=== PATIENT | female | born 1965 | race Caucasian/White ===

== ENCOUNTER → 2016-09-07 | Outpatient (CLI) | payer BC ==
[2016-09-07 11:58] LABS: Basophils % (A) 0 %; CH 31.7; CHCM 32.6; Eosinophils # (A) 0.1 k/uL (0-0.7); Eosinophils % (A) 1 %; HCT 44.5 % (34.0-46.0); HDW 2.37; HGB 14.2 gm/dL (11.4-16.0); Luc # (Auto) 0.19; Luc % (Auto) 2; Lymphocytes # (A) 3.7 k/uL (1.0-4.8); Lymphocytes % (A) 37 %; MCH 31.2 pg (25.0-35.0); MCHC 31.9 g/dL (31.0-37.0); MCV 97.9 fL (80.0-100.0); Mean Platelet Volume 6.5; Monocytes # (A) 0.4 k/uL (0-1.0); Monocytes % (A) 4 %; Neutrophils # (A) 5.6 k/uL (1.3-7.7); Neutrophils % (A) 56 %; RBC 4.54 m/uL (3.80-5.40); RDW 13.4 % (11.5-15.5); WBC 9.9 k/uL (3.8-10.6)
[2016-09-07 13:25] LABS: ALT 52 U/L (9-52); AST 25 U/L (14-36); Alkaline Phosphatase 67 U/L (38-126); Anion Gap 11 mmol/L; Blood Urea Nitrogen 13 mg/dL (7-17); Calcium 9.4 mg/dL (8.4-10.2); Carbon Dioxide 28 mmol/L (22-30); Chloride 104 mmol/L (98-107); Cholesterol 178 mg/dL (<200); Creatine Kinase 54 U/L (30-135); Glucose 95 mg/dL (74-99); HDL Cholesterol 68 mg/dL (40-60); Non-African American GFR(MDRD) >60 (>60 ml/min/1.73 sqM); Potassium 3.8 mmol/L (3.5-5.1); Sodium 143 mmol/L (137-145); Total Bilirubin 0.7 mg/dL (0.2-1.3); Total Protein 6.7 g/dL (6.3-8.2); Triglycerides 203 mg/dL (<150)
[2016-09-07 14:24] LABS: Vitamin B12 >1000 pg/mL (239-931)
== END | disposition home or self-care (01) ==
LOC: LABWHC1 11:02
PROVIDERS: ATTEND Family Medicine
DX: E11.9 Type 2 diabetes mellitus without complications (principal); E78.2 Mixed hyperlipidemia; I10 Essential (primary) hypertension; R53.82 Chronic fatigue, unspecified
CPT/HCPCS: 36415; 80053; 80061; 82550; 82607; 83036; 84439; 84443; 85025

== ENCOUNTER → 2017-03-06 | Outpatient (CLI) | payer BC ==
[2017-03-06 12:15] LABS: Basophils # (A) 0.1 k/uL (0-0.2); Basophils % (A) 1 %; CH 31.6; CHCM 32.9; Eosinophils # (A) 0.1 k/uL (0-0.7); Eosinophils % (A) 2 %; HDW 2.32; HGB 14.3 gm/dL (11.4-16.0); Luc # (Auto) 0.16; Luc % (Auto) 2; Lymphocytes # (A) 3.9 k/uL (1.0-4.8); Lymphocytes % (A) 41 %; MCH 32.1 pg (25.0-35.0); MCHC 33.2 g/dL (31.0-37.0); MCV 96.5 fL (80.0-100.0); Mean Platelet Volume 6.6; Monocytes # (A) 0.4 k/uL (0-1.0); Monocytes % (A) 4 %; Neutrophils % (A) 52 %; RBC 4.45 m/uL (3.80-5.40); RDW 13.5 % (11.5-15.5); WBC 9.7 k/uL (3.8-10.6); WBC (Perox) 9.77
[2017-03-06 12:54] LABS: ALT 38 U/L (9-52); AST 18 U/L (14-36); Alkaline Phosphatase 67 U/L (38-126); Anion Gap 11 mmol/L; Bilirubin, Delta 0.2 mg/dL (0.0-0.2); Blood Urea Nitrogen 18 mg/dL (7-17); C Reactive Protein 6.9 mg/L (<10.0); Calcium 9.2 mg/dL (8.4-10.2); Carbon Dioxide 26 mmol/L (22-30); Chloride 105 mmol/L (98-107); Cholesterol 216 mg/dL (<200); Creatine Kinase 52 U/L (30-135); Glucose 90 mg/dL (74-99); HDL Cholesterol 63 mg/dL (40-60); Non-African American GFR(MDRD) >60 (>60 ml/min/1.73 sqM); Potassium 4.2 mmol/L (3.5-5.1); Sodium 142 mmol/L (137-145); Total Bilirubin 0.6 mg/dL (0.2-1.3); Total Protein 6.6 g/dL (6.3-8.2)
[2017-03-06 13:19] LABS: Vitamin B12 >1000 pg/mL (239-931)
[2017-03-06 14:12] LABS: Hemoglobin A1C 6.2 % (4.2-6.1)
[2017-03-06 15:35] LABS: Erythrocyte Sedimentation Rate 8 mm/hr (0-20)
[2017-03-06 19:34] LABS: ANA w/Reflex to Titer NEGATIVE (NEGATIVE); RNP AB Interpretation NEGATIVE (NEGATIVE)
[2017-03-06 20:18] LABS: Urine Creatinine 130.1 mg/dL
[2017-03-09 11:22] LABS: Lyme IgG/IgM 0.1 Index; Lyme IgG/IgM Interp NEGATIVE (NEGATIVE)
== END | disposition home or self-care (01) ==
LOC: LABWHC1 11:34
PROVIDERS: ATTEND Dermatology
DX: D48.5 Neoplasm of uncertain behavior of skin (principal); E78.2 Mixed hyperlipidemia; E11.9 Type 2 diabetes mellitus without complications; E03.9 Hypothyroidism, unspecified; D69.0 Allergic purpura; D60.9 Acquired pure red cell aplasia, unspecified; R53.82 Chronic fatigue, unspecified; M85.9 Disorder of bone density and structure, unspecified; R60.9 Edema, unspecified
CPT/HCPCS: 36415; 80053; 80061; 80307; 82043; 82248; 82306; 82550; 82570; 82607; 83036; 84165; 84439; 84443; 85025; 85652; 86038; 86140; 86235; 86618

== ENCOUNTER → 2017-08-09 | Outpatient (CLI) | payer BC ==
[2017-08-09 12:51] LABS: Basophils # (A) 0.1 k/uL (0-0.2); Basophils % (A) 1 %; Eosinophils # (A) 0.1 k/uL (0-0.7); Eosinophils % (A) 1 %; HGB 13.7 gm/dL (11.4-16.0); Lymphocytes % (A) 16 %; MCH 30.7 pg (25.0-35.0); MCHC 31.8 g/dL (31.0-37.0); MCV 96.6 fL (80.0-100.0); Mean Platelet Volume 6.4; Monocytes # (A) 0.3 k/uL (0-1.0); Monocytes % (A) 3 %; Neutrophils % (A) 80 %; Platelet Count 339 k/uL (150-450); RBC 4.45 m/uL (3.80-5.40); RDW 13.1 % (11.5-15.5); WBC 12.6 k/uL (3.8-10.6)
[2017-08-09 12:55] LABS: ALT 42 U/L (9-52); AST 21 U/L (14-36); Albumin 4.2 g/dL (3.5-5.0); Alkaline Phosphatase 61 U/L (38-126); Anion Gap 7 mmol/L; Blood Urea Nitrogen 15 mg/dL (7-17); Calcium 9.6 mg/dL (8.4-10.2); Carbon Dioxide 29 mmol/L (22-30); Chloride 106 mmol/L (98-107); Cholesterol 174 mg/dL (<200); Creatine Kinase 64 U/L (30-135); Glucose 113 mg/dL (74-99); HDL Cholesterol 72 mg/dL (40-60); LDL Cholesterol,Calculated 71 mg/dL (0-99); Potassium 4.7 mmol/L (3.5-5.1); Sodium 142 mmol/L (137-145); Total Bilirubin 0.4 mg/dL (0.2-1.3); Total Protein 6.5 g/dL (6.3-8.2); Triglycerides 154 mg/dL (<150); Uric Acid 4.3 mg/dL (3.7-7.4)
[2017-08-09 13:11] LABS: T4, Free (Free Thyroxine) 0.69 ng/dL (0.78-2.19)
[2017-08-09 21:15] LABS: Alternaria alternata IgE <0.10 kU/L; Maple (Box Elder) IgE <0.10 kU/L
[2017-08-09 21:16] LABS: Birch IgE <0.10 kU/L; Oak IgE <0.10 kU/L
[2017-08-09 21:17] LABS: Cat Epith & Dander IgE <0.10 kU/L; Cockroach IgE <0.10 kU/L; Dermato. farinae IgE <0.10 kU/L; Dog Dander IgE <0.10 kU/L; Elm IgE <0.10 kU/L; Ragweed,Common IgE <0.10 kU/L; Red Top (Bentgrass) IgE <0.10 kU/L
[2017-08-09 23:18] LABS: Hemoglobin A1C 6.2 % (4.0-6.0)
[2017-08-15 03:43] LABS: Aspergillus fumigatus IgG Not detected (Not detected); Aureobasidium pullulans IgG 3.3 mcg/mL (< 13.6); Cladosporium herbarium IgG 7.6 mcg/mL (< 14.7); Phoma ssp. IgG < 2.0 mcg/mL (< 6.6); Saccaharomospora viridis Not detected (Not detected); Saccaharopoly. rectivirgula Not detected (Not detected)
== END | disposition home or self-care (01) ==
LOC: LABWHC1 11:56
PROVIDERS: ATTEND Family Medicine
DX: E11.9 Type 2 diabetes mellitus without complications (principal); I10 Essential (primary) hypertension
CPT/HCPCS: 36415; 80053; 80061; 82306; 82550; 82785; 83036; 84439; 84443; 84550; 85025; 86001; 86003; 86606; 86609

== ENCOUNTER → 2017-09-20 | Outpatient (CLI) | payer BC | END | disposition home or self-care (01) | LOC: LABWHC1 11:31 | PROVIDERS: ATTEND Otolaryngology | DX: J30.89 Other allergic rhinitis (principal) | CPT/HCPCS: 36415 ==

== ENCOUNTER → 2017-10-02 | Outpatient (CLI) | payer BC ==
[2017-10-02 13:22] LABS: Basophils # (A) 0.1 k/uL (0-0.2); Basophils % (A) 0 %; Eosinophils # (A) 0.1 k/uL (0-0.7); Eosinophils % (A) 0 %; HCT 42.2 % (34.0-46.0); HGB 14.2 gm/dL (11.4-16.0); Lymphocytes # (A) 1.6 k/uL (1.0-4.8); Lymphocytes % (A) 11 %; MCH 31.4 pg (25.0-35.0); MCHC 33.7 g/dL (31.0-37.0); Mean Platelet Volume 6.7; Monocytes # (A) 0.3 k/uL (0-1.0); Monocytes % (A) 2 %; Neutrophils # (A) 12.1 k/uL (1.3-7.7); Neutrophils % (A) 86 %; Platelet Count 416 k/uL (150-450); RBC 4.54 m/uL (3.80-5.40); RDW 13.2 % (11.5-15.5); WBC 14.1 k/uL (3.8-10.6)
[2017-10-02 19:22] LABS: Rheumatoid Factor 6 IU/mL (0-15)
[2017-10-02 20:53] LABS: Hepatitis A Antibody IgM Non-Reactive (Non-Reactive); Hepatitis B Core IgM Non-Reactive (Non-Reactive)
== END | disposition home or self-care (01) ==
LOC: LABWHC1 12:27
PROVIDERS: ATTEND Otolaryngology
DX: R53.83 Other fatigue (principal); R21 Rash and other nonspecific skin eruption; L50.9 Urticaria, unspecified
CPT/HCPCS: 36415; 80074; 82784; 85025; 86038; 86235; 86431; 86665

== ENCOUNTER → 2018-02-19 | Outpatient (CLI) | payer BC ==
[2018-02-19 08:58] LABS: Basophils # (A) 0.1 k/uL (0-0.2); Basophils % (A) 1 %; Eosinophils # (A) 0.2 k/uL (0-0.7); Eosinophils % (A) 2 %; HCT 41.3 % (34.0-46.0); HGB 13.1 gm/dL (11.4-16.0); Lymphocytes # (A) 4.1 k/uL (1.0-4.8); Lymphocytes % (A) 47 %; MCH 30.5 pg (25.0-35.0); MCHC 31.7 g/dL (31.0-37.0); MCV 96.3 fL (80.0-100.0); Mean Platelet Volume 6.4; Monocytes # (A) 0.4 k/uL (0-1.0); Monocytes % (A) 5 %; Neutrophils # (A) 3.9 k/uL (1.3-7.7); Neutrophils % (A) 44 %; Platelet Count 332 k/uL (150-450); RBC 4.29 m/uL (3.80-5.40); RDW 14.2 % (11.5-15.5); WBC 8.8 k/uL (3.8-10.6)
[2018-02-19 09:04] LABS: ALT 31 U/L (9-52); AST 20 U/L (14-36); Albumin 3.7 g/dL (3.5-5.0); Alkaline Phosphatase 60 U/L (38-126); Anion Gap 5 mmol/L; Blood Urea Nitrogen 10 mg/dL (7-17); Calcium 9.2 mg/dL (8.4-10.2); Carbon Dioxide 29 mmol/L (22-30); Chloride 107 mmol/L (98-107); Cholesterol 182 mg/dL (<200); Glucose 87 mg/dL (74-99); HDL Cholesterol 62 mg/dL (40-60); LDL Cholesterol,Calculated 87 mg/dL (0-99); Potassium 4.3 mmol/L (3.5-5.1); Sodium 141 mmol/L (137-145); Total Bilirubin 0.3 mg/dL (0.2-1.3); Total Protein 5.8 g/dL (6.3-8.2); Triglycerides 165 mg/dL (<150)
[2018-02-19 09:18] LABS: T4, Free (Free Thyroxine) 0.92 ng/dL (0.78-2.19)
[2018-02-19 16:24] LABS: Immunoglobulin E 28.3 IU/mL (0.00-114.00)
[2018-02-19 17:39] LABS: Hemoglobin A1C 5.8 % (4.0-6.0)
== END | disposition home or self-care (01) ==
LOC: LABWHC1 08:22
PROVIDERS: ATTEND Family Medicine
DX: D69.0 Allergic purpura (principal); F90.2 Attention-deficit hyperactivity disorder, combined type; E11.9 Type 2 diabetes mellitus without complications; E78.2 Mixed hyperlipidemia
CPT/HCPCS: 36415; 80053; 80061; 82607; 82785; 83036; 83088; 83655; 84439; 84443; 85025

== ENCOUNTER → 2018-05-07 | Outpatient (CLI) | payer OTHER ==
--- NOTE | 2018-05-07 10:23 | XR ---
EXAMINATION TYPE: XR chest 2V DATE OF EXAM: 05/07/2018 COMPARISON: NONE HISTORY: Persistent cough after recent pneumonia. COPD. Follow-up exam. TECHNIQUE: Frontal and lateral views of the chest are obtained. FINDINGS: There is no focal air space opacity, pleural effusion, or pneumothorax seen. The cardiac silhouette size is within normal limits. The osseous structures are intact. IMPRESSION: No acute cardiopulmonary process. No persistent opacity to suggest recurrent or residual pneumonia.
== END ==
LOC: RADXRMAIN 09:25
PROVIDERS: ATTEND Family Medicine
DX: J44.1 Chronic obstructive pulmonary disease with (acute) exacerbation (principal); J18.9 Pneumonia, unspecified organism; J44.0 Chronic obstructive pulmonary disease with (acute) lower respiratory infection
CPT/HCPCS: 71046

== ENCOUNTER → 2018-07-18 | Outpatient (CLI) | payer OTHER ==
[2018-07-18 11:11] LABS: Basophils # (A) 0.1 k/uL (0-0.2); Basophils % (A) 1 %; Eosinophils # (A) 0.2 k/uL (0-0.7); Eosinophils % (A) 2 %; HCT 42.7 % (34.0-46.0); Lymphocytes # (A) 4.5 k/uL (1.0-4.8); Lymphocytes % (A) 42 %; MCH 29.2 pg (25.0-35.0); MCHC 30.4 g/dL (31.0-37.0); MCV 96.1 fL (80.0-100.0); Mean Platelet Volume 6.4; Monocytes # (A) 0.4 k/uL (0-1.0); Monocytes % (A) 4 %; Neutrophils # (A) 5.3 k/uL (1.3-7.7); Neutrophils % (A) 49 %; Platelet Count 377 k/uL (150-450); RBC 4.45 m/uL (3.80-5.40); RDW 14.1 % (11.5-15.5); WBC 10.7 k/uL (3.8-10.6)
[2018-07-18 15:43] LABS: Albumin 4.4 g/dL (3.80-4.90); Albumin/Globulin Ratio 2.59 (1.20-2.10); Anion Gap 8.4 mmol/L (4.00-12.00); Calcium 9.6 mg/dL (8.7-10.3); Carbon Dioxide 27.6 mmol/L (21.6-31.8); Globulin 1.7 g/dL (1.6-3.3); Potassium 4.5 mmol/L (3.5-5.5); Total Bilirubin 0.4 mg/dL (0.2-1.2); Total Protein 6.1 g/dL (6.2-8.2); Uric Acid 3.9 mg/dL (2.9-7.7)
[2018-07-18 15:51] LABS: T4, Free (Free Thyroxine) 1.3 ng/dL (0.80-1.80)
[2018-07-18 16:47] LABS: Hemoglobin A1C 6.3 % (4.0-6.0)
== END ==
LOC: LABWHC1 10:19
PROVIDERS: ATTEND Family Medicine
DX: E11.9 Type 2 diabetes mellitus without complications (principal); M79.2 Neuralgia and neuritis, unspecified; B00.1 Herpesviral vesicular dermatitis; Z79.52 Long term (current) use of systemic steroids
CPT/HCPCS: 36415; 80053; 80061; 82550; 82607; 83036; 84439; 84443; 84550; 85025

== ENCOUNTER → 2018-09-17 | Outpatient (CLI) | payer OTHER ==
--- NOTE | 2018-09-17 12:25 | MR ---
EXAMINATION TYPE: MR lumbar spine wo con DATE OF EXAM: 09/17/2018 COMPARISON: NONE HISTORY: Radiculopathy lumbar per order. Back pain into left hip buttocks and thigh for 6 months per patient. TECHNIQUE: Multiplanar, multisequence imaging of the lumbar spine is performed without IV contrast. FINDINGS: Sagittal images of the lumbar spine show vertebral body heights and alignment to appear sat isfactory. Multilevel disc desiccation is seen. There is moderate disc space narrowing upper lumbar levels. There is mild disc space narrowing L5-S1 level. Posterior disc herniations are seen at L1-L2 and L4-L5 level on sagittal images. The conus medullaris is normal in position and signal ending mid L1 level. The bone marrow signal intensity is within normal limits. Axial images at T12-L1 level show mild broad disc bulge minimally effacing anterior thecal sac and ax ial image 28 corresponding to sagittal image 7, bilateral neural foramina are patent. Axial images at L1-L2 level show mild to moderate broad disc bulge mildly effacing anterior thecal sa c, bilateral neural foramina are patent. Axial images at L2-L3 level are felt within normal limits. Axial images at L3-L4 level show mild left-sided uncovertebral facet degenerative changes otherwise a re felt within normal limits. Axial images at L4-L5 level show mild to moderate facet degenerative changes bilaterally. There is ce ntral disc protrusion mildly effacing anterior thecal sac. Bilateral neural foramina are patent. Axial images at L5-S1 level show mild to moderate facet degenerative changes bilaterally. Spinal nahum l is preserved. Bilateral neural foramina are patent. Paraspinal muscle bulk is preserved. No suspicious incidental retroperitoneal findings are seen. IMPRESSION: Multilevel degenerative changes in the lumbar spine as above. Most prominent disc herniat ions are L1-L2 and L4-L5 level but no large focal disc herniation is seen to account for patient's le ft-sided radiculopathy type symptoms.
== END | disposition home or self-care (01) ==
LOC: RADMRIMAIN 11:25
PROVIDERS: ATTEND Family Medicine
DX: M51.16 Intervertebral disc disorders with radiculopathy, lumbar region (principal); M47.27 Other spondylosis with radiculopathy, lumbosacral region; M47.26 Other spondylosis with radiculopathy, lumbar region
CPT/HCPCS: 72148

== ENCOUNTER → 2019-03-12 | Outpatient (CLI) | payer OTHER ==
[2019-03-12 08:58] LABS: Basophils # (A) 0.1 k/uL (0-0.2); Basophils % (A) 1 %; Eosinophils # (A) 0.3 k/uL (0-0.7); Eosinophils % (A) 2 %; HCT 42.3 % (34.0-46.0); HGB 13.8 gm/dL (11.4-16.0); Lymphocytes # (A) 4.9 k/uL (1.0-4.8); Lymphocytes % (A) 43 %; MCH 30.2 pg (25.0-35.0); MCHC 32.6 g/dL (31.0-37.0); MCV 92.8 fL (80.0-100.0); Mean Platelet Volume 6.4; Monocytes # (A) 0.5 k/uL (0-1.0); Monocytes % (A) 4 %; Neutrophils # (A) 5.6 k/uL (1.3-7.7); Neutrophils % (A) 49 %; Platelet Count 395 k/uL (150-450); RBC 4.56 m/uL (3.80-5.40); RDW 13.8 % (11.5-15.5); WBC 11.6 k/uL (3.8-10.6)
[2019-03-12 09:32] LABS: ALT 30 U/L (9-52); AST 20 U/L (14-36); African American GFR (CKD) 85 (>60 ml/min/1.73 sqM); Albumin 4.5 g/dL (3.5-5.0); Alkaline Phosphatase 69 U/L (38-126); Anion Gap 9 mmol/L; Blood Urea Nitrogen 14 mg/dL (7-17); C Reactive Protein <5.0 mg/L (<10.0); Calcium 9.9 mg/dL (8.4-10.2); Carbon Dioxide 28 mmol/L (22-30); Chloride 104 mmol/L (98-107); Cholesterol 194 mg/dL (<200); Creatine Kinase 51 U/L (30-135); Glucose 93 mg/dL (74-99); HDL Cholesterol 74 mg/dL (40-60); LDL Cholesterol,Calculated 76 mg/dL (0-99); Non-African American GFR(CKD) 74 (>60 ml/min/1.73 sqM); Potassium 3.9 mmol/L (3.5-5.1); Sodium 141 mmol/L (137-145); Total Bilirubin 0.4 mg/dL (0.2-1.3); Total Protein 7.1 g/dL (6.3-8.2); Triglycerides 219 mg/dL (<150); Uric Acid 5.5 mg/dL (3.7-7.4)
[2019-03-12 09:53] LABS: Erythrocyte Sedimentation Rate 13 mm/hr (0-20)
--- NOTE | 2019-03-12 11:12 | CT ---
EXAMINATION TYPE: CT abdomen w con DATE OF EXAM: 03/12/2019 COMPARISON: None HISTORY: Mixed Irritable bowel syndrome CT DLP: 1103.9 mGycm CONTRAST: CT scan of the abdomen is performed with Oral Contrast and with IV Contrast, patient injected with 1 00 mL of Isovue 300. FINDINGS: LUNG BASES-: No visible nodule. No infiltrate. LIVER/GB: No calcified gallstones. There is mild hepatic steatosis. No space occupying hepatic les ion. Biliary tree is of normal caliber. PANCREAS: No inflammation. No distinct mass. SPLEEN: No splenic enlargement. No lesion seen. ADRENALS: No nodule. No thickening. KIDNEYS/BLADDER: No hydronephrosis. No nephrolithiasis. No distinct renal mass. Urinary bladder g rossly unremarkable. BOWEL: Normal appendix. Normal bowel caliber. No inflammation. LYMPH NODES: No greater than 1cm abdominal or pelvic lymph nodes are appreciated. AORTA: No significant abnormality. OSSEOUS STRUCTURES: No significant abnormality is seen. OTHER: No significant additional abnormality is seen. IMPRESSION: 1. Hepatic steatosis. Otherwise unremarkable study.
[2019-03-12 18:00] LABS: Gliadin AB IgA, Deaminated NEGATIVE (NEGATIVE); Gliadin AB IgA, Unit 1.6 U/mL; Gliadin AB IgG, Deaminated NEGATIVE (NEGATIVE)
== END | disposition home or self-care (01) ==
LOC: RADCTMAIN 08:19
PROVIDERS: ATTEND Family Medicine
DX: K76.0 Fatty (change of) liver, not elsewhere classified (principal); G89.4 Chronic pain syndrome; K58.2 Mixed irritable bowel syndrome; E78.2 Mixed hyperlipidemia; E11.9 Type 2 diabetes mellitus without complications; F90.2 Attention-deficit hyperactivity disorder, combined type; Z79.52 Long term (current) use of systemic steroids
CPT/HCPCS: 80061; 80053; 85652; 82607; 82550; 83690; 84443; 84550; 85025; 86140; 83516 ×4; 83036; 74160; Q9967

== ENCOUNTER 2019-03-19 06:57 | Day surgery (SDC) | payer OTHER ==
[2019-03-18 08:30] VITALS: BMI 31.7
[~2019-03-19 06:57] MED LIST: LACTATED RINGERS 1,000 ML IV SCH; LIDOCAINE 1% 20 ML VIAL (10MG/ML) FOR IV START INTRADERMA PRN
[2019-03-19 07:15] VITALS: TEMP 96.1
[2019-03-19 07:17] LABS: Glucose,Whole Blood 104 mg/dL (75-99)
[2019-03-19] MEDS ORDERED: PROPOFOL 10 MG/ML 20 ML VIAL IV ONE (07:30)
[2019-03-19] MEDS ORDERED: LIDOCAINE 1% INJ 10MG/ML (20 ML MDV) ONE (07:30)
--- NOTE | 2019-03-19 07:59 | P.PCN ---
Date of Procedure: 03/19/19 Procedure(s) Performed: BRIEF HISTORY: Patient is a 53-year-old pleasant female, scheduled for an elective colonoscopy as a part of evaluation of chronic diarrhea for the last several years duration. She has 5-6 loose watery bowel movements daily. She denies melena or mucus in the stool. PROCEDURE PERFORMED: Colonoscopy with biopsy and snare polypectomy. PREOPERATIVE DIAGNOSIS: Change in bowel habits/chronic diarrhea. IV sedation per Anesthesia. PROCEDURE: After informed consent was obtained, the patient, was brought into the endoscopy unit. IV sedation was administered by Anesthesia under continuous monitoring. Digital rectal examination was normal. Initially the Olympus CF-160 flexible video colonoscope was then inserted in the rectum, gradually advanced into the cecum without any difficulty. Careful examination was performed as the scope was gradually being withdrawn. Ileocecal valve and the appendiceal orifice were visualized and appeared normal. Prep was excellent. Mucosa of the cecum, appeared normal. In the ascending colon there was a 1 cm broad-based polyp removed by snare polypectomy. In the transverse colon there was a 5 mm and 1 cm broad-based polyp removed by snare polypectomy. In the sigmoid colon there was a 7-8 mm polyp that was removed by snare polypectomy. In the distal rectum there was a 3 mm polyp removed by snare polypectomy. Rest of the ascending colon, transverse colon, descending colon, sigmoid colon, and rectum appeared normal. Random biopsies were done from the transverse colon to rule out microscopic/collagenous colitis. Retroflexion was performed in the rectum and no lesions were seen. The patient tolerated the procedure well. IMPRESSION: 1 cm broad-based ascending colon polyp status post polypectomy 5 mm and 1 cm broad-based transverse colon polyps status post polypectomy 7-8 mm sigmoid colon polyps status post polypectomy 3 mm distal rectal polyp status post snare polypectomy RECOMMENDATIONS: Findings of this examination were discussed with the patient as well as a family. She was advised to follow with the biopsy results. If the biopsy shows an adenoma, she can have a repeat colonoscopy in 3 years.
[2019-03-19 08:02] VITALS: RESP 16
[2019-03-19 08:26] VITALS: BP 128/88; PULSE 82
== END 2019-03-19 08:58 | disposition home or self-care (01) ==
LOC: ORWHC2ENDO 06:57
PROVIDERS: ATTEND Internal Medicine Gastroenterology
DX: D12.4 Benign neoplasm of descending colon (principal); D12.5 Benign neoplasm of sigmoid colon; K63.5 Polyp of colon; K63.89 Other specified diseases of intestine; K62.1 Rectal polyp; K58.0 Irritable bowel syndrome with diarrhea; I10 Essential (primary) hypertension; J44.9 Chronic obstructive pulmonary disease, unspecified; E78.5 Hyperlipidemia, unspecified; E07.9 Disorder of thyroid, unspecified; F39 Unspecified mood [affective] disorder; Z87.891 Personal history of nicotine dependence; Z79.52 Long term (current) use of systemic steroids; Z79.890 Hormone replacement therapy; Z79.899 Other long term (current) drug therapy
CPT/HCPCS: 88305; 45380; 45385; J2001; J2704

== ENCOUNTER → 2019-04-08 | Outpatient (CLI) | payer OTHER ==
--- NOTE | 2019-04-09 09:23 | US ---
EXAMINATION TYPE: US transvaginal DATE OF EXAM: 04/08/2019 COMPARISON: NONE CLINICAL HISTORY: R10.2 pelvic pain. Pt states bilateral pelvic pain, more on right side, hysterectom y in 1999 TECHNIQUE: Transvaginal (TV). Transvaginal sonographic images of the pelvis were acquired. Date of LMP: 1999 1. Uterus: Surgically absent 2. Endometrium: Surgically absent 3. Right Ovary: Obscured by overlying bowel gas 4. Left Ovary: Obscured by overlying bowel gas 5. Bilateral Adnexa: wnl 6. Posterior cul-de-sac: wnl Unable to visualize bilateral ovaries due to overlying bowel gas, no abnormality visualized within pelvis IMPRESSION: 1. Visualized pelvic ultrasound is unremarkable. There is limitation due to bowel gas.
== END | disposition home or self-care (01) ==
LOC: RADUSWWP 16:01
PROVIDERS: ATTEND Family Medicine
DX: R10.2 Pelvic and perineal pain (principal)
CPT/HCPCS: 76830

== ENCOUNTER 2019-05-28 04:24 | Emergency (ER) | payer OTHER ==
[2019-05-28 04:34] VITALS: RESP 18; TEMP 97.9
[2019-05-28] MEDS ORDERED: METOCLOPRAMIDE 5 MG/ML 2 ML VIAL IVP STA (05:10)
[2019-05-28] MEDS ORDERED: SODIUM CHLORIDE 0.9% 500 ML 500 ML IV STA (05:10)
[2019-05-28] MEDS ORDERED: KETOROLAC 30 MG/ML 1 ML VIAL IVP STA (05:10)
[2019-05-28] MEDS ORDERED: diphenhydrAMINE 50 MG/ML 1 ML VIAL IVP STA (05:10)
--- NOTE | 2019-05-28 06:03 | ED ---
Headache HPI - General Chief Complaint: Headache Stated Complaint: Headache,vomiting,diarrhea Time Seen by Provider: 05/28/19 04:59 Mode of arrival: wheelchair - History of Present Illness MD Complaint: "migraine" -: hour(s) Onset Description: gradual Location: right, temporal, occipital Severity: severe Quality: aching, throbbing Consistency: constant Improves With: nothing Worsens With: light, noise Associated Symptoms: nausea, vomiting - Related Data Home Medications Medication Instructions Recorded Confirmed Atorvastatin [Lipitor] 80 mg PO HS 03/18/19 03/19/19 Cholecalciferol [Vitamin D3 (25 5,000 unit PO DAILY 03/18/19 03/19/19 Mcg = 1000 Iu)] Citalopram Hydrobromide 40 mg PO DAILY 03/18/19 03/19/19 [Citalopram HBr] Cyanocobalamin (Vitamin B-12) 5,000 mcg PO DAILY 03/18/19 03/19/19 [Vitamin B-12] DULoxetine HCL [Cymbalta] 30 mg PO BID 03/18/19 03/19/19 Ipratropium/Albuterol Sulfate 1 puff INHALATION QID 03/18/19 03/19/19 [Combivent Respimat Inhaler] Levothyroxine Sodium [Synthroid] 50 mcg PO DAILY 03/18/19 03/19/19 Methylphenidate HCl [Ritalin LA] 30 mg PO DAILY 03/18/19 03/19/19 Montelukast [Singulair] 10 mg PO HS 03/18/19 03/19/19 Omeprazole [PriLOSEC] 20 mg PO AC-BRKFST 03/18/19 03/19/19 Propranolol HCl 60 mg PO DAILY 03/18/19 03/19/19 hydrOXYzine HCL 25 mg PO HS 03/18/19 03/19/19 predniSONE 10 mg PO DAILY 03/18/19 03/19/19 Allergies Allergy/AdvReac Type Severity Reaction Status Date / Time No Known Allergies Allergy Verified 05/28/19 04:33 Review of Systems ROS Statement: Those systems with pertinent positive or pertinent negative responses have been documented in the HPI. ROS Other: All systems not noted in ROS Statement are negative. Constitutional: Denies: fever, chills Eyes: Denies: eye pain, vision change ENT: Denies: ear pain, hearing loss, congestion Respiratory: Denies: cough, dyspnea Cardiovascular: Denies: chest pain, syncope Gastrointestinal: Reports: nausea, vomiting. Denies: abdominal pain Skin: Denies: rash Neurological: Reports: headache. Denies: weakness, numbness, paresthesias, confusion, abnormal gait Hematological/Lymphatic: Denies: easy bleeding Past Medical History Past Medical History: Asthma, COPD, GERD/Reflux, Hyperlipidemia, Hypertension, Skin Disorder, Thyroid Disorder Additional Past Medical History / Comment(s): CHRONIC HIVES History of Any Multi-Drug Resistant Organisms: None Reported Past Surgical History: Hysterectomy Additional Past Surgical History / Comment(s): LT THYROIDECTOMY. COLONOSCOPY Past Anesthesia/Blood Transfusion Reactions: No Reported Reaction Past Psychological History: ADD/ADHD, Depression Smoking Status: Current some day smoker Past Alcohol Use History: Occasional Past Drug Use History: None Reported - Past Family History Mother Family Medical History: No Reported History General Exam General appearance: alert, in no apparent distress Head exam: Present: atraumatic, normocephalic Eye exam: Present: normal appearance, PERRL, EOMI. Absent: scleral icterus, conjunctival injection ENT exam: Present: normal oropharynx Neck exam: Present: normal inspection, full ROM. Absent: meningismus Respiratory exam: Present: normal lung sounds bilaterally. Absent: respiratory distress, wheezes, rales, rhonchi, stridor Cardiovascular Exam: Present: regular rate, normal rhythm, normal heart sounds. Absent: systolic murmur, diastolic murmur, rubs, gallop GI/Abdominal exam: Present: soft. Absent: distended, tenderness, guarding, rebo und Extremities exam: Present: normal inspection, normal capillary refill. Absent: pedal edema, calf tenderness Back exam: Present: normal inspection. Absent: CVA tenderness (R), CVA tenderness (L) Neurological exam: Present: alert, oriented X3, CN II-XII intact. Absent: motor sensory deficit Skin exam: Present: warm, dry, intact, normal color. Absent: rash Course Vital Signs 05/28/19 05/28/19 04:30 06:12 Temperature 97.9 F Pulse Rate 78 69 Respiratory 18 18 Rate Blood Pressure 160/111 132/75 O2 Sat by Pulse 99 96 Oximetry Medical Decision Making - Medical Decision Making Patient had resolution of her symptoms with the medication and requested to go home. This headache is typical of her previous headaches. Not worst headache of life. Discussed follow-up with neurology to see if there may be a prophylactic medication for her migraines. Discussed return parameters. Disposition Clinical Impression: Headache Disposition: HOME SELF-CARE Condition: Good Instructions (If sedation given, give patient instructions): Acute Headache (ED) Is patient prescribed a controlled substance at d/c from ED?: No Referrals: Veronique Segovia MD [Primary Care Provider] - 1-2 days
[2019-05-28 06:15] VITALS: BP 132/75; PULSE 69
== END 2019-05-28 06:15 | disposition home or self-care (01) ==
LOC: EC 04:24
DX: R51 Headache (principal); J44.9 Chronic obstructive pulmonary disease, unspecified; K21.9 Gastro-esophageal reflux disease without esophagitis; E78.5 Hyperlipidemia, unspecified; I10 Essential (primary) hypertension; E07.9 Disorder of thyroid, unspecified; L50.8 Other urticaria; F90.9 Attention-deficit hyperactivity disorder, unspecified type; F32.9 Major depressive disorder, single episode, unspecified; F17.200 Nicotine dependence, unspecified, uncomplicated; Z79.51 Long term (current) use of inhaled steroids; Z79.890 Hormone replacement therapy; Z79.52 Long term (current) use of systemic steroids; Z79.899 Other long term (current) drug therapy; Z90.89 Acquired absence of other organs
CPT/HCPCS: 99283; 96374; 96375 ×2; 96361; J1200; J2765; J1885

== ENCOUNTER → 2019-08-06 | Outpatient (CLI) | payer OTHER ==
[2019-08-06 15:33] LABS: African American GFR (CKD) >90 (>60 ml/min/1.73 sqM); Blood Urea Nitrogen 15 mg/dL (7-17); Non-African American GFR(CKD) 80 (>60 ml/min/1.73 sqM)
--- NOTE | 2019-08-07 05:02 | CT ---
EXAMINATION TYPE: CT angio abdomen pelvis DATE OF EXAM: 08/06/2019 COMPARISON: CT abdomen 03/12/2019 HISTORY: 54-year-old female RLQ abdominal pain TECHNIQUE: Contiguous axial scanning of the abdomen and pelvis following administration of 100 ml Iso jordana-370 IV contrast. Coronal/sagittal MIP reconstructions performed. Additional 3-D reconstructions generated on a dedicated independent workstation. CT DLP: 745.6 mGycm Automated exposure control for dose reduction was used. FINDINGS: Heart normal size without pericardial effusion. Lung bases clear without pleural effusion. Tortuous descending thoracic aorta. At the thoracoabdominal junction, the aorta is borderline ectatic at 2.5 cm. Celiac axis, SMA, single renal arteries, and GERARDO are patent. Very mild atherosclerotic calcifications eccentrically within the proximal right renal artery. Abdominal aorta at the level of the renal arteries measures 2.2 cm. Distal abdominal aorta measures 1.7 cm. The bifurcation appears normal and the common iliac arteries are normal caliber. Tiny hiatal hernia. Arterial phase imaging of the liver, gallbladder, adrenal glands, kidneys, spleen with tiny inferior hilar splenule, and pancreas show no gross abnormality. Assessment for hepatic steatosis limited on t his phase of imaging. No dilated small bowel, free fluid, or free air. No mesenteric or retroperitoneal lymphadenopathy. Normal appendix. Mild stool burden. Mildly redundant sigmoid colon. No pericolonic inflammatory adler e. Bladder nondistended. Uterus surgically absent. Both ovaries are visualized. A few pelvic phlebolith are noted. No abnormal fluid collection in the pelvis or pelvic lymphadenopathy. Bones: Scattered mild degenerative disc disease. Facet arthropathy lower lumbar spine. Trace grade 1 retrolisthesis at L1-L2. IMPRESSION: 1. NO EVIDENCE FOR ABDOMINAL AORTIC ANEURYSM. THE AORTA AT THE THORACOABDOMINAL JUNCTION IS BORDERLIN E ECTATIC AT 2.5 CM. 2. NO SIGNIFICANT ATHEROSCLEROTIC NARROWING WITHIN THE VISCERAL ARTERIES. 3. NORMAL APPENDIX. NO ACUTE INFLAMMATORY PROCESS IDENTIFIED IN THE ABDOMEN OR PELVIS.
== END | disposition home or self-care (01) ==
LOC: RADCTMAIN 14:51
PROVIDERS: ATTEND Family Medicine
DX: I77.811 Abdominal aortic ectasia (principal)
CPT/HCPCS: 82565; 84520; 36415; 74174; Q9967

== ENCOUNTER → 2019-08-12 | Outpatient (CLI) | payer OTHER ==
[2019-08-12 12:29] LABS: Basophils # (A) 0.1 k/uL (0-0.2); Basophils % (A) 1 %; Eosinophils # (A) 0.2 k/uL (0-0.7); Eosinophils % (A) 2 %; HCT 41.9 % (34.0-46.0); HGB 13.8 gm/dL (11.4-16.0); Lymphocytes # (A) 1.4 k/uL (1.0-4.8); Lymphocytes % (A) 14 %; MCH 31.2 pg (25.0-35.0); MCV 94.4 fL (80.0-100.0); Monocytes # (A) 0.3 k/uL (0-1.0); Monocytes % (A) 3 %; Neutrophils # (A) 8.1 k/uL (1.3-7.7); Neutrophils % (A) 79 %; Platelet Count 344 k/uL (150-450); RBC 4.43 m/uL (3.80-5.40); WBC 10.2 k/uL (3.8-10.6)
[2019-08-12 13:50] LABS: Erythrocyte Sedimentation Rate 13 mm/hr (0-20)
[2019-08-12 19:48] LABS: Protein, Total 6.2 g/dL (6.2-8.2)
[2019-08-12 20:10] LABS: ALT 39 U/L (8-44); AST 23 U/L (13-35); African American GFR (CKD) 74.5 (60.0-200.0); Albumin/Globulin Ratio 2.88 (1.60-3.17); Alkaline Phosphatase 73 U/L (41-126); C Reactive Protein <0.4 mg/dL (0.0-0.8); Calcium 9.1 mg/dL (8.7-10.3); Carbon Dioxide 28.1 mmol/L (21.6-31.8); Chloride 105 mmol/L (96-109); Chol/HDL Ratio 3.02; Cholesterol 193 mg/dL (0-200); Creatine Kinase 47 U/L (26-186); Globulin 1.6 g/dL (1.6-3.3); Glucose 128 mg/dL (70-110); LDH 225 U/L (120-246); LDL Cholesterol,Calculated 91.4 mg/dL (0.0-131.0); Magnesium 2.1 mg/dL (1.5-2.4); Non-African American GFR(CKD) 64.3 (60.0-200.0); Potassium 4.1 mmol/L (3.5-5.5); Sodium 141 mmol/L (135-145); Total Bilirubin 0.5 mg/dL (0.3-1.2); Total Protein 6.2 g/dL (6.2-8.2); Uric Acid 4.2 mg/dL (2.9-7.7)
[2019-08-12 21:27] LABS: Hemoglobin A1C 6.5 % (4.0-6.0)
[2019-08-13 13:46] LABS: Albumin 3.78 g/dL (3.80-4.90); Gamma Globulin 0.45 g/dL (0.70-1.50)
== END | disposition home or self-care (01) ==
LOC: LABWHC1 12:01
PROVIDERS: ATTEND Family Medicine
DX: E11.9 Type 2 diabetes mellitus without complications (principal); E78.2 Mixed hyperlipidemia; E03.9 Hypothyroidism, unspecified; K58.2 Mixed irritable bowel syndrome; M25.552 Pain in left hip; R10.30 Lower abdominal pain, unspecified
CPT/HCPCS: 36415; 80053; 80061; 82550; 82595; 83036; 83615; 83690; 83735; 84165; 84439; 84443; 84550; 85025; 85652; 86140

== ENCOUNTER → 2019-09-16 | Outpatient (CLI) | payer OTHER ==
--- NOTE | 2019-09-16 12:10 | XR ---
EXAMINATION TYPE: XR finger LT, 3 views coned down left thumb DATE OF EXAM: 09/16/2019 Comparison: None Clinical History: 54-year-old female M79.642 PAIN LEFT HAND Findings: There is a 4 mm loose body on the dorsal aspect of the first CMC joint. Moderate to severe joint spac e narrowing is present with marginal spurring. Some dorsal joint subluxation is also noted. No acute fracture or dislocation. Mild degenerative joint space narrowing triscaphe joint. 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 Mild degenerative change at the triscaphe joint.
== END | disposition home or self-care (01) ==
LOC: RADXRWHC 11:02
PROVIDERS: ATTEND Family Medicine
DX: M19.042 Primary osteoarthritis, left hand (principal); M19.032 Primary osteoarthritis, left wrist

== ENCOUNTER → 2020-01-16 | Outpatient (CLI) | payer OTHER ==
[2020-01-16 12:43] LABS: Basophils # (A) 0.1 k/uL (0-0.2); Basophils % (A) 1 %; Eosinophils # (A) 0.2 k/uL (0-0.7); Eosinophils % (A) 2 %; HCT 42.7 % (34.0-46.0); HGB 13.3 gm/dL (11.4-16.0); Lymphocytes # (A) 3.1 k/uL (1.0-4.8); Lymphocytes % (A) 29 %; MCHC 31.2 g/dL (31.0-37.0); MCV 96.2 fL (80.0-100.0); Mean Platelet Volume 7.2; Monocytes # (A) 0.5 k/uL (0-1.0); Monocytes % (A) 4 %; Neutrophils # (A) 6.8 k/uL (1.3-7.7); Neutrophils % (A) 64 %; Platelet Count 361 k/uL (150-450); RBC 4.44 m/uL (3.80-5.40); RDW 13.4 % (11.5-15.5); WBC 10.7 k/uL (3.8-10.6)
[2020-01-16 19:15] LABS: African American GFR (CKD) 84.6 (60.0-200.0); Albumin 4.4 g/dL (3.80-4.90); Albumin/Globulin Ratio 2.44 (1.60-3.17); Anion Gap 7.8 mmol/L (4.00-12.00); BUN/Creat Ratio 13.33 Ratio (12.00-20.00); Calcium 9.1 mg/dL (8.7-10.3); Carbon Dioxide 29.2 mmol/L (21.6-31.8); Chol/HDL Ratio 3.19; Globulin 1.8 g/dL (1.6-3.3); LDL Cholesterol,Calculated 93.2 mg/dL (0.0-131.0); Potassium 4.3 mmol/L (3.5-5.5); Total Bilirubin 0.5 mg/dL (0.2-1.2); Total Protein 6.2 g/dL (6.2-8.2); VLDL Calculation 44.8 mg/dL (5.00-40.00)
[2020-01-16 19:22] LABS: T4, Free (Free Thyroxine) 1.4 ng/dL (0.80-1.80)
[2020-01-16 20:47] LABS: Urine Creatinine 246.3 mg/dL
[2020-01-16 21:12] LABS: Hemoglobin A1C 6.8 % (4.0-6.0)
== END | disposition home or self-care (01) ==
LOC: LABWHC1 11:37
PROVIDERS: ATTEND Family Medicine
DX: I10 Essential (primary) hypertension (principal); E11.9 Type 2 diabetes mellitus without complications; M79.7 Fibromyalgia; E78.2 Mixed hyperlipidemia; Z79.52 Long term (current) use of systemic steroids
CPT/HCPCS: 36415; 80053; 80061; 82043; 82306; 82550; 82570; 82607; 83036; 84439; 84443; 85025

== ENCOUNTER 2020-01-26 15:57 | Emergency (ER) | payer OTHER ==
[2020-01-26 16:13] VITALS: TEMP 99
[2020-01-26] MEDS ORDERED: ONDANSETRON 4 MG/2 ML VIAL IVP STA (16:43)
[2020-01-26] MEDS ORDERED: KETOROLAC 30 MG/ML 1 ML VIAL IVP STA (16:43)
[2020-01-26] MEDS ORDERED: SODIUM CHLORIDE 0.9% 1,000 ML IV STA (16:43)
--- NOTE | 2020-01-26 16:49 | ED ---
Back Pain HPI - General Chief Complaint: Back Pain/Injury Stated Complaint: rib & back pain Time Seen by Provider: 01/26/20 16:18 Source: patient Limitations: no limitations - History of Present Illness Initial Comments: Patient is a 54-year-old female presenting to emergency Department with chief complaint of back and abdominal pain. Patient states she saw her primary care physician today who advised to come to emergency department to rule out gallstones. Patient states for the last few weeks she developed right upper quadrant abdominal pain, but yesterday around 5 PM she was reeling a hose with her right hand when she felt a sudden onset of right upper flank/right thoracic region tenderness near the serratus muscle patient also reports right upper quadrant pain and tenderness that is sharp in nature. States the pain is not related to by mouth intake. Denies any nausea or vomiting. Denies any night sweats or chills. Patient reports the pain is sharp in nature. Patient reports the pain is exacerbated with ambulation. Patient reports she also has right upper quadrant abdominal pain. States the pain is not postprandial but it is sharp in nature. Patient denies any diarrhea or constipation. - Related Data Home Medications Medication Instructions Recorded Confirmed Atorvastatin [Lipitor] 80 mg PO HS 03/18/19 03/19/19 Cholecalciferol [Vitamin D3 (25 5,000 unit PO DAILY 03/18/19 03/19/19 Mcg = 1000 Iu)] Citalopram Hydrobromide 40 mg PO DAILY 03/18/19 03/19/19 [Citalopram HBr] Cyanocobalamin (Vitamin B-12) 5,000 mcg PO DAILY 03/18/19 03/19/19 [Vitamin B-12] DULoxetine HCL [Cymbalta] 30 mg PO BID 03/18/19 03/19/19 Ipratropium/Albuterol Sulfate 1 puff INHALATION QID 03/18/19 03/19/19 [Combivent Respimat Inhaler] Levothyroxine Sodium [Synthroid] 50 mcg PO DAILY 03/18/19 03/19/19 Methylphenidate HCl [Ritalin LA] 30 mg PO DAILY 03/18/19 03/19/19 Montelukast [Singulair] 10 mg PO HS 03/18/19 03/19/19 Omeprazole [PriLOSEC] 20 mg PO AC-BRKFST 03/18/19 03/19/19 Propranolol HCl 60 mg PO DAILY 03/18/19 03/19/19 hydrOXYzine HCL 25 mg PO HS 03/18/19 03/19/19 predniSONE 10 mg PO DAILY 03/18/19 03/19/19 Previous Rx's Medication Instructions Recorded Cyclobenzaprine [Flexeril] 5 mg PO TID PRN #15 tablet 01/26/20 Allergies Allergy/AdvReac Type Severity Reaction Status Date / Time No Known Allergies Allergy Verified 01/26/20 16:09 Review of Systems ROS Statement: Those systems with pertinent positive or pertinent negative responses have been documented in the HPI. ROS Other: All systems not noted in ROS Statement are negative. Past Medical History Past Medical History: Asthma, COPD, GERD/Reflux, Hyperlipidemia, Hypertension, Skin Disorder, Thyroid Disorder Additional Past Medical History / Comment(s): CHRONIC HIVES History of Any Multi-Drug Resistant Organisms: None Reported Past Surgical History: Hysterectomy Additional Past Surgical History / Comment(s): LT THYROIDECTOMY. COLONOSCOPY Past Anesthesia/Blood Transfusion Reactions: No Reported Reaction Past Psychological History: ADD/ADHD, Depression Smoking Status: Current some day smoker Past Alcohol Use History: Occasional Past Drug Use History: None Reported - Past Family History Mother Family Medical History: No Reported History General Exam Limitations: no limitations General appearance: alert, in no apparent distress Head exam: Present: atraumatic, normocephalic Eye exam: Present: normal appearance, PERRL, EOMI Pupils: Present: normal accommodation ENT exam: Present: normal exam, normal oropharynx, mucous membranes moist, TM's normal bilaterally, normal external ear exam Neck exam: Present: normal inspection, full ROM Respiratory exam: Present: normal lung sounds bilaterally. Absent: respiratory distress, wheezes Cardiovascular Exam: Present: regular rate, normal rhythm, normal heart sounds GI/Abdominal exam: Present: soft, tenderness (Right upper quadrant abdominal pain. Negative Ray sign. Right flank pain.). Absent: distended Extremities exam: Present: normal inspection, full ROM. Absent: tenderness Back exam: Present: normal inspection, full ROM, tenderness (Tenderness along the right serratus anterior muscle). Absent: CVA tenderness (R), CVA tenderness (L), paraspinal tenderness, vertebral tenderness Neurological exam: Present: alert, oriented X3, normal gait Psychiatric exam: Present: normal affect, normal mood Skin exam: Present: warm, dry, intact, normal color Course Vital Signs 01/26/20 01/26/20 01/26/20 16:10 17:11 17:47 Temperature 99.0 F Pulse Rate 144 H 114 H 109 H Respiratory 22 18 18 Rate Blood Pressure 175/119 172/127 142/99 O2 Sat by Pulse 95 97 97 Oximetry 01/26/20 18:49 Temperature 99.0 F Pulse Rate 109 H Respiratory 18 Rate Blood Pressure 142/99 O2 Sat by Pulse 97 Oximetry Medical Decision Making - Medical Decision Making Patient is a 54-year-old female presenting to emergency Department with chief complaint of back pain. She was sent by PCP to rule out gallstones. On exam patient appears to have focal tenderness along the right serratus anterior muscles that appears to be exacerbated with a pulling motion of the right upper extremity. She also appears to have right upper quadrant abdominal tenderness with a negative Ray sign. Ultrasound right upper quadrant reveals no signs of gallbladder-related issues. Patient has mild leukocytosis of 13.1. CMP is unremarkable. UA is clean. I suspect this is most discussed the pain related to the right serratus anterior muscle. Patient was given fluids and analgesia. On reevaluation patient still reports some pain. Patient was given a Lidoderm patch. On reevaluation patient reports improving symptoms. Patient will be discharged with Tylenol 3 starter pack. Her blood pressure did improve with just suspect was only high secondary to pain. No focal neural deficits. No ch est pain or shortness of breath. Return parameters were thoroughly discussed the patient was understanding and agreeable. Case discussed with physician. - Lab Data Result diagrams: 01/26/20 16:56 01/26/20 16:56 Lab Results 01/26/20 01/26/20 01/26/20 Range/Units 16:56 16:56 Unknown WBC 13.1 H (3.8-10.6) k/uL RBC 4.62 (3.80-5.40) m/uL Hgb 13.9 (11.4-16.0) gm/dL Hct 43.7 (34.0-46.0) % MCV 94.6 (80.0-100.0) fL MCH 30.1 (25.0-35.0) pg MCHC 31.9 (31.0-37.0) g/dL RDW 13.7 (11.5-15.5) % Plt Count 395 (150-450) k/uL Neutrophils % 71 % Lymphocytes % 20 % Monocytes % 5 % Eosinophils % 2 % Basophils % 1 % Neutrophils # 9.3 H (1.3-7.7) k/uL Lymphocytes # 2.7 (1.0-4.8) k/uL Monocytes # 0.6 (0-1.0) k/uL Eosinophils # 0.3 (0-0.7) k/uL Basophils # 0.1 (0-0.2) k/uL Sodium 138 (137-145) mmol/L Potassium 4.1 (3.5-5.1) mmol/L Chloride 106 (98-107) mmol/L Carbon Dioxide 21 L (22-30) mmol/L Anion Gap 11 mmol/L BUN 8 (7-17) mg/dL Creatinine 0.70 (0.52-1.04) mg/dL Est GFR (CKD-EPI)AfAm >90 (>60 ml/min/1.73 sqM) Est GFR (CKD-EPI)NonAf >90 (>60 ml/min/1.73 sqM) Glucose 119 H (74-99) mg/dL Calcium 9.8 (8.4-10.2) mg/dL Total Bilirubin 0.6 (0.2-1.3) mg/dL AST 29 (14-36) U/L ALT 32 (4-34) U/L Alkaline Phosphatase 89 (38-126) U/L Total Protein 7.2 (6.3-8.2) g/dL Albumin 4.5 (3.5-5.0) g/dL Lipase 130 (23-300) U/L Urine Color Light Yellow Urine Appearance Clear (Clear) Urine pH 5.5 (5.0-8.0) Ur Specific [place] 1.007 (1.001-1.035) Urine Protein Negative (Negative) Urine Glucose (UA) Negative (Negative) Urine Ketones Negative (Negative) Urine Blood Negative (Negative) Urine Nitrite Negative (Negative) Urine Bilirubin Negative (Negative) Urine Urobilinogen <2.0 (<2.0) mg/dL Ur Leukocyte Esterase Negative (Negative) Disposition Clinical Impression: Back pain Disposition: HOME SELF-CARE Condition: Stable Instructions (If sedation given, give patient instructions): Acute Low Back Pain (ED) Additional Instructions: Follow-up with her primary care. Take medication as directed. Return to emergency department if symptoms worsen. Prescriptions: Cyclobenzaprine [Flexeril] 5 mg PO TID PRN #15 tablet PRN Reason: Muscle Spasm Is patient prescribed a controlled substance at d/c from ED?: No Referrals: Veronique Segovia MD [Primary Care Provider] - 1-2 days Time of Disposition: 18:28
[2020-01-26 17:01] LABS: Basophils # (A) 0.1 k/uL (0-0.2); Basophils % (A) 1 %; Eosinophils # (A) 0.3 k/uL (0-0.7); Eosinophils % (A) 2 %; HCT 43.7 % (34.0-46.0); HGB 13.9 gm/dL (11.4-16.0); Lymphocytes # (A) 2.7 k/uL (1.0-4.8); Lymphocytes % (A) 20 %; MCH 30.1 pg (25.0-35.0); MCHC 31.9 g/dL (31.0-37.0); MCV 94.6 fL (80.0-100.0); Mean Platelet Volume 7.1; Monocytes # (A) 0.6 k/uL (0-1.0); Monocytes % (A) 5 %; Neutrophils # (A) 9.3 k/uL (1.3-7.7); Neutrophils % (A) 71 %; Platelet Count 395 k/uL (150-450); RBC 4.62 m/uL (3.80-5.40); RDW 13.7 % (11.5-15.5); WBC 13.1 k/uL (3.8-10.6)
[2020-01-26 17:08] LABS: Appearance,Urine Clear (Clear); Bilirubin,Urine Negative (Negative); Blood,Urine Negative (Negative); Color,Urine Light Yellow; Glucose,Urine (UA) Negative (Negative); Ketones,Urine Negative (Negative); Leukocyte Esterase,Urine Negative (Negative); Nitrite,Urine Negative (Negative); PH, Urine 5.5 (5.0-8.0); Protein,Urine Negative (Negative); Specific Gravity,Urine 1.007 (1.001-1.035); Urobilinogen,Urine <2.0 mg/dL (<2.0)
[2020-01-26 17:12] VITALS: RESP 18
[2020-01-26 17:14] LABS: ALT 32 U/L (4-34); AST 29 U/L (14-36); African American GFR (CKD) >90 (>60 ml/min/1.73 sqM); Albumin 4.5 g/dL (3.5-5.0); Alkaline Phosphatase 89 U/L (38-126); Anion Gap 11 mmol/L; Blood Urea Nitrogen 8 mg/dL (7-17); Calcium 9.8 mg/dL (8.4-10.2); Carbon Dioxide 21 mmol/L (22-30); Chloride 106 mmol/L (98-107); Glucose 119 mg/dL (74-99); Non-African American GFR(CKD) >90 (>60 ml/min/1.73 sqM); Potassium 4.1 mmol/L (3.5-5.1); Sodium 138 mmol/L (137-145); Total Bilirubin 0.6 mg/dL (0.2-1.3); Total Protein 7.2 g/dL (6.3-8.2)
[2020-01-26 17:47] VITALS: BP 142/99; PULSE 109
--- NOTE | 2020-01-26 17:52 | US ---
EXAMINATION TYPE: US abdomen limited DATE OF EXAM: 01/26/2020 COMPARISON: CT 2019. CLINICAL HISTORY: ruq abd pain. RUQ abdominal pain x 1 day. Hx kidney stone. EXAM MEASUREMENTS: Liver Length: 15.7 cm Gallbladder Wall: 0.18 cm CBD: 0.30 cm Right Kidney: 11.7 x 4.7 x 5.2 cm *Limited due to overlying bowel gas and patient body habitus. Pancreas: Not well visualized. Liver: Appears to have an increased echogenicity and to be coarse. Limited. Gallbladder: Limited, appears to have minimal internal echoes within. Measures 3.1 cm in width. Evidence for sonographic Ray's sign: No CBD: Appears to be wnl. Right Kidney: No hydronephrosis or masses seen. Cortical thinning. IMPRESSION: 1. No acute abdomen ultrasound changes. There is some limitation due to body habitus and bowel gas.
[2020-01-26] MEDS ORDERED: ACET/COD 300 MG/30 MG STARTER PACK 6 TAB BTL PO STA (18:25)
[2020-01-26] MEDS ORDERED: LIDOCAINE 5% PATCH TOPICAL STA (18:25)
== END 2020-01-26 18:52 | disposition home or self-care (01) ==
LOC: EC 15:57
DX: M54.9 Dorsalgia, unspecified (principal); R10.11 Right upper quadrant pain; D72.829 Elevated white blood cell count, unspecified; E78.5 Hyperlipidemia, unspecified; I10 Essential (primary) hypertension; J44.9 Chronic obstructive pulmonary disease, unspecified; F17.200 Nicotine dependence, unspecified, uncomplicated; K21.9 Gastro-esophageal reflux disease without esophagitis; E07.9 Disorder of thyroid, unspecified; L50.8 Other urticaria; F32.9 Major depressive disorder, single episode, unspecified; F90.9 Attention-deficit hyperactivity disorder, unspecified type; Z79.890 Hormone replacement therapy; Z79.51 Long term (current) use of inhaled steroids; Z79.52 Long term (current) use of systemic steroids; Z79.899 Other long term (current) drug therapy; Z87.442 Personal history of urinary calculi; Z90.89 Acquired absence of other organs
CPT/HCPCS: 36415; 80053; 83690; 85025; 81003; 76705; 99284; 96374; 96361 ×2; J1885

== ENCOUNTER → 2020-02-25 | Outpatient (CLI) | payer OTHER ==
--- NOTE | 2020-02-25 09:21 | BD ---
EXAMINATION TYPE: Axial Bone Density DATE OF EXAM: 02/25/2020 COMPARISON: 06.28.2017 CLINICAL HISTORY: 54 YR OLD FEMALE.....ICD-10 CODE: M81.0 OSTEOPOROSIS Height: 62.4 Weight: 197 FRAX RISK QUESTIONS: Glucocorticoids (More than 3mos): YES (Ex: prednisone, prednisolone, methylprednisolone, dexamethasone, and hydrocortisone). Current Tobacco Use: YES, BUT QUIT MONTHS AGO RISK FACTORS HISTORY OF: RT FOOT FRACTURE AT 42 YRS OLD History of Wrist Fracture: RT WRIST CHILD Family History of Osteoporosis: YES, HER MOTHER NO HIP FX Diet low in dairy products/other sources of calcium: YES, IBS Postmenopausal woman: YES AT AGE 33 PARTIAL HYST, 50'S FOR SYMPTOMS Hyperparathyroidism: NO Adrenal Insufficiency: NO MEDICATIONS: Prednisone or other steroids: YES, BOTH FOR ASTHMA AND FIBROMYALGIA, URTICARIAL VASCULITIS How Long: OVER 20 YRS Thyroid Medications: GENERIC SYNTROID, FOR ABOUT 7 YRS Additional Medications: BP MEDS, CYMBALTA, REFLUX MEDS, STATIN FOR CHOLESTEROL, VIT D AND CALCIUM Additional History: ASTHMA, FIBROMYALGIA, UTICARIAL VASCULITIS, DIET CONTROLLED DIABETES, REFLUX, HY PERTENSION, CHOLESTEROL, EXAM MEASUREMENTS: Bone mineral densitometry was performed using the [employer] System. Bone mineral density as measured about the Lumbar spine is: ----- L1-L4(G/cm2): 1.056 T Score Values are as follows: ----- L1: 0.2 ----- L2: -1.0 ----- L3: -1.6 ----- L4: -1.6 ----- L1-L4: -1.0 Bone mineral density has: Increased 4.1% since study of: 06.28.2017 Bone mineral density about the R hip (g/cm2): 0.817 Bone mineral density about the L hip (g/cm2): 0.885 T Score values are as follows: -----R Neck: -1.8 -----L Neck: -2.0 -----R Total: -1.5 -----L Total: -1.0 Bone mineral density has: Increased 1.6% since study of: 06.28.2017 FRAX%s: THERE IS A 20.5% CHANCE FOR A MAJOR OSTEOPOROTIC FX AND A 5.3% FOR HIP....PROBABILITY FOR F X IN 10 YRS TIME IMPRESSION: Osteopenia (T Score between -2.5 and -1). There is slightly increased risk of fracture and the patient may be considered for treatment. Re-Screen 2-5 years. NOTE: T-SCORE=SD OF THE YOUNG ADULT MEAN.
== END | disposition home or self-care (01) ==
LOC: RADBDWWP 07:07
PROVIDERS: ATTEND Family Medicine
DX: M85.80 Other specified disorders of bone density and structure, unspecified site (principal)
CPT/HCPCS: 77080

== ENCOUNTER → 2020-05-28 | Outpatient (CLI) | payer OTHER ==
[2020-05-28 15:27] LABS: Basophils # (A) 0.1 k/uL (0-0.2); Basophils % (A) 1 %; Eosinophils # (A) 0.1 k/uL (0-0.7); Eosinophils % (A) 1 %; HCT 45.7 % (34.0-46.0); HGB 14.7 gm/dL (11.4-16.0); Lymphocytes # (A) 1.3 k/uL (1.0-4.8); Lymphocytes % (A) 12 %; MCH 30.7 pg (25.0-35.0); MCHC 32.1 g/dL (31.0-37.0); MCV 95.6 fL (80.0-100.0); Monocytes # (A) 0.3 k/uL (0-1.0); Monocytes % (A) 3 %; Neutrophils # (A) 8.9 k/uL (1.3-7.7); Neutrophils % (A) 83 %; Platelet Count 385 k/uL (150-450); RBC 4.78 m/uL (3.80-5.40); RDW 13.3 % (11.5-15.5); WBC 10.7 k/uL (3.8-10.6)
[2020-05-28 15:32] LABS: Appearance,Urine Clear (Clear); Bacteria,Urine Occasional /hpf; Bilirubin,Urine Negative (Negative); Blood,Urine Negative (Negative); Color,Urine Yellow; Glucose,Urine (UA) Negative (Negative); Hyaline Casts,Urine 1 /lpf (0-2); Ketones,Urine Negative (Negative); Leukocyte Esterase,Urine Trace (Negative); Mucus,Urine Few /hpf; Nitrite,Urine Negative (Negative); PH, Urine 5.5 (5.0-8.0); Protein,Urine Trace (Negative); RBC,Urine 1 /hpf (0-5); Specific Gravity,Urine 1.025 (1.001-1.035); Squamous Epithelial Cell,Urine 2 /hpf (0-4); Urobilinogen,Urine <2.0 mg/dL (<2.0); WBC,Urine 4 /hpf (0-5)
[2020-05-28 23:26] LABS: INR 0.95 (0.90-1.11); Prothrombin Time 10.3 sec (9.9-11.9)
[2020-05-29 00:31] LABS: Hemoglobin A1C 6.8 % (4.0-6.0)
[2020-05-29 01:02] LABS: Albumin 4.6 g/dL (3.80-4.90); Albumin/Globulin Ratio 2.3 (1.60-3.17); Anion Gap 8.5 mmol/L (4.00-12.00); BUN/Creat Ratio 15.56 Ratio (12.00-20.00); Carbon Dioxide 29.5 mmol/L (21.6-31.8); Chol/HDL Ratio 4.38; LDL Cholesterol,Calculated 117.2 mg/dL (0.0-131.0); Non-African American GFR(CKD) 72.5 (60.0-200.0); Potassium 4.4 mmol/L (3.5-5.5); Total Bilirubin 0.6 mg/dL (0.2-1.2); Total Protein 6.6 g/dL (6.2-8.2); VLDL Calculation 78.8 mg/dL (5.00-40.00)
[2020-05-29 01:20] LABS: Urine Creatinine 259.8 mg/dL
== END | disposition home or self-care (01) ==
LOC: LABWHC1 13:57
PROVIDERS: ATTEND Family Medicine
DX: E11.9 Type 2 diabetes mellitus without complications (principal); G89.4 Chronic pain syndrome; M85.9 Disorder of bone density and structure, unspecified
CPT/HCPCS: 36415; 80053; 80061; 81001; 82043; 82550; 82570; 83036; 84443; 85025; 85610

== ENCOUNTER → 2020-10-07 | Outpatient (CLI) | payer OTHER ==
[2020-10-07 18:09] LABS: Basophils % (A) 1.1 %; Eosinophils # (A) 0.18 X 10*3/uL (0.04-0.35); HCT 38.6 % (37.2-46.3); HGB 12.3 g/dL (12.0-15.0); Lymphocytes # (A) 3.02 X 10*3/uL (0.90-5.00); Lymphocytes % (A) 34.1 %; MCH 29.6 pg (27.0-32.0); MCHC 31.9 g/dL (32.0-37.0); Mean Platelet Volume 10.6 fL (9.5-12.2); Monocytes # (A) 0.72 X 10*3/uL (0.20-1.00); Monocytes % (A) 8.1 %; Neutrophils % (A) 54.2 %; Platelet Count 343 X 10*3/uL (140-440); RBC 4.15 X 10*6/uL (4.10-5.20); RDW 13.8 % (11.5-14.5); WBC 8.86 X 10*3/uL (4.50-10.00)
[2020-10-07 20:57] LABS: Hemoglobin A1C 5.6 % (4.0-6.0)
[2020-10-07 23:25] LABS: Albumin 4.3 g/dL (3.80-4.90); Albumin/Globulin Ratio 2.69 (1.60-3.17); Anion Gap 12.4 mmol/L (4.00-12.00); BUN/Creat Ratio 18.89 Ratio (12.00-20.00); Calcium 9.8 mg/dL (8.7-10.3); Carbon Dioxide 26.6 mmol/L (21.6-31.8); Chol/HDL Ratio 3.04; Globulin 1.6 g/dL (1.6-3.3); LDL Cholesterol,Calculated 70.4 mg/dL (0.0-131.0); Non-African American GFR(CKD) 72.5 (60.0-200.0); Potassium 3.7 mmol/L (3.5-5.5); Total Bilirubin 0.4 mg/dL (0.2-1.2); Total Protein 5.9 g/dL (6.2-8.2); Uric Acid 5.9 mg/dL (2.9-7.7); VLDL Calculation 25.6 mg/dL (5.00-40.00)
[2020-10-07 23:33] LABS: T4, Free (Free Thyroxine) 1.2 ng/dL (0.80-1.80)
[2020-10-08 04:11] LABS: Urine Creatinine 220.9 mg/dL
== END | disposition home or self-care (01) ==
LOC: LABWHC1 07:57
PROVIDERS: ATTEND Family Medicine
DX: E78.2 Mixed hyperlipidemia (principal); L95.9 Vasculitis limited to the skin, unspecified; E11.9 Type 2 diabetes mellitus without complications; R53.82 Chronic fatigue, unspecified
CPT/HCPCS: 36415; 80053; 80061; 82043; 82550; 82570; 83036; 84439; 84443; 84550; 85025; 86038

== ENCOUNTER → 2021-01-03 | Outpatient (CLI) | payer OTHER ==
--- NOTE | 2021-01-05 09:01 | P.ARTDOP ---
Arterial Doppler LOWER EXTREMITY ARTERIAL DOPPLER: DATE OF SERVICE: 01/03/2021 Reason for study: Right leg pain. Doppler waveforms: Multiphasic bilaterally throughout. Pulse volume recording: []. Pressure gradients: None. Ankle-brachial indices: Greater than 1 bilaterally. Toe brachial indices: 0.91 on the right, 0.75 on the left Impression: Normal study.
== END | disposition home or self-care (01) ==
LOC: RADUSWWP 13:44
PROVIDERS: ATTEND Family Medicine
DX: M79.604 Pain in right leg (principal)
CPT/HCPCS: 93922; 93923

== ENCOUNTER → 2021-01-11 | Outpatient (CLI) | payer OTHER ==
--- NOTE | 2021-01-11 13:47 | XR ---
EXAMINATION TYPE: XR wrist complete RT DATE OF EXAM: 01/11/2021 CLINICAL HISTORY: pain TECHNIQUE: Frontal, lateral and oblique images of the right wrist are obtained. COMPARISON: None. FINDINGS: There is no acute fracture/dislocation evident. Moderate degenerative narrowing first carpal metacarp al joint space with mild bony fragmentation seen. The overlying soft tissue appears unremarkable. IMPRESSION: Degenerative changes as discussed.
--- NOTE | 2021-01-11 13:48 | XR ---
EXAMINATION TYPE: XR cervical spine limited DATE OF EXAM: 01/11/2021 CLINICAL HISTORY: pain TECHNIQUE: 3 views of the cervical spine are submitted. COMPARISON: None. FINDINGS: There is satisfactory in alignment without evidence of acute fracture or dislocation. The pre-vertebral soft tissue appears within normal limits. Severe degenerative narrowing at C5-6 and C6 -7 with ventral and dorsal spondylosis. Endplate sclerosis identified at each of these levels. Facet joint arthropathy. The C1-C2 articulation is unremarkable on the open mouth view. IMPRESSION: No acute fracture or dislocation is seen in the cervical spine. Degenerative changes as noted above.
== END | disposition home or self-care (01) ==
LOC: RADXRMAIN 12:53
PROVIDERS: ATTEND Family Medicine
DX: M19.031 Primary osteoarthritis, right wrist (principal); M47.812 Spondylosis without myelopathy or radiculopathy, cervical region
CPT/HCPCS: 72040

== ENCOUNTER → 2021-02-16 | Outpatient (CLI) | payer OTHER ==
[2021-02-16 19:39] LABS: Basophils # (A) 0.08 X 10*3/uL (0.00-0.10); Eosinophils # (A) 0.21 X 10*3/uL (0.04-0.35); Eosinophils % (A) 2.7 %; HCT 38.8 % (37.2-46.3); HGB 12.2 g/dL (12.0-15.0); Lymphocytes # (A) 2.35 X 10*3/uL (0.90-5.00); Lymphocytes % (A) 29.7 %; MCH 28.8 pg (27.0-32.0); MCHC 31.4 g/dL (32.0-37.0); MCV 91.5 fL (80.0-97.0); Mean Platelet Volume 10.3 fL (9.5-12.2); Monocytes # (A) 0.68 X 10*3/uL (0.20-1.00); Monocytes % (A) 8.6 %; Neutrophils # (A) 4.55 X 10*3/uL (1.80-7.70); Neutrophils % (A) 57.6 %; Platelet Count 416 X 10*3/uL (140-440); RBC 4.24 X 10*6/uL (4.10-5.20)
[2021-02-16 21:35] LABS: Erythrocyte Sedimentation Rate 17 mm/Hr (0-30)
[2021-02-17 02:08] LABS: Albumin 4.4 g/dL (3.80-4.90); Albumin/Globulin Ratio 2.1 (1.60-3.17); Anion Gap 11.2 mmol/L (4.00-12.00); Calcium 9.6 mg/dL (8.7-10.3); Carbon Dioxide 22.8 mmol/L (21.6-31.8); Chol/HDL Ratio 3.93; Globulin 2.1 g/dL (1.6-3.3); LDL Cholesterol,Calculated 74.4 mg/dL (0.0-131.0); Non-African American GFR(CKD) 63.8 (60.0-200.0); Potassium 4.3 mmol/L (3.5-5.5); Total Bilirubin 0.5 mg/dL (0.2-1.2); Total Protein 6.5 g/dL (6.2-8.2); Uric Acid 4.8 mg/dL (2.9-7.7); VLDL Calculation 45.6 mg/dL (5.00-40.00)
[2021-02-17 02:17] LABS: T4, Free (Free Thyroxine) 1.2 ng/dL (0.80-1.80)
== END | disposition home or self-care (01) ==
LOC: LABWHC1 11:15
PROVIDERS: ATTEND Family Medicine
DX: E11.9 Type 2 diabetes mellitus without complications (principal); F90.2 Attention-deficit hyperactivity disorder, combined type; L95.9 Vasculitis limited to the skin, unspecified; E78.2 Mixed hyperlipidemia; R53.82 Chronic fatigue, unspecified
CPT/HCPCS: 36415; 80053; 80061; 82024; 82533; 82550; 82607; 83036; 84439; 84443; 84550; 85025; 85652

== ENCOUNTER → 2021-02-26 | Outpatient (CLI) | payer OTHER ==
--- NOTE | 2021-02-26 13:34 | MR ---
EXAMINATION TYPE: MR cervical spine wo con DATE OF EXAM: 02/26/2021 COMPARISON: None HISTORY: Neck Pain, Headaches, Numbness in Right arm and fingers CONTRAST: Performed utilizing 0 mL intravenous gadolinium contrast. TECHNIQUE: Multiplanar multiecho imaging on a 3.0 Aminta magnet is performed through the cervical spin e. FINDINGS: The craniovertebral junction is normal. Vertebral body alignment is normal. C7-T1: No focal disc herniation or significant disc bulge is evident. No spinal canal stenosis or n eural foraminal stenosis is present. C6-7: Loss of disc at this level. Residual disc bulge has anterior thecal sac flattening. No cord con tact is evident. No spinal canal stenosis is present. Left uncovertebral joint hypertrophy is moderat e left foraminal stenosis.. C5-6: There is loss of disc height is level. Broad-based residual disc bulge is moderate anterior the ariel sac impression. Some cord contact and cord flattening may be present. No AP spinal canal stenosis present. This slightly greater to the right paracentral region. There is moderate right foraminal na rrowing.. C4-5: Central broad disc protrusion in the left paracentral region with moderate anterior thecal sac compression. This comes in close approximation of the spinal cord. No AP spinal canal stenosis is pre sent. The neural foramen are patent.. C3-4: There is a small central protrusion with moderate anterior thecal sac compression and cord cont act. No cord deformity is evident. No spinal canal stenosis or neural foraminal stenosis is present.. C2-3: Central disc protrusion is mild anterior thecal sac compression and is in close approximation w ith the spinal cord. No spinal canal stenosis or neural foraminal stenosis is present.. IMPRESSIONS: 1. Degenerative disc changes with loss of disc height and moderate residual disc bulging with moderat e anterior thecal sac compression C5-6 and C6-7. 2. Central disc protrusions without disc herniation C2-3 through C4-5 discussed above.
== END | disposition home or self-care (01) ==
LOC: RADMRIMAIN 10:29
PROVIDERS: ATTEND Family Medicine
DX: M50.223 Other cervical disc displacement at C6-C7 level (principal); M50.323 Other cervical disc degeneration at C6-C7 level
CPT/HCPCS: 72141

== ENCOUNTER → 2021-11-11 | Outpatient (CLI) | payer OTHER ==
[2021-11-11 21:05] LABS: Basophils # (A) 0.07 X 10*3/uL (0.00-0.10); Basophils % (A) 1.1 %; Eosinophils # (A) 0.12 X 10*3/uL (0.04-0.35); Eosinophils % (A) 1.8 %; HGB 11.9 g/dL (12.0-15.0); Immature Grans, Automated 0.3 %; Lymphocytes # (A) 2.18 X 10*3/uL (0.90-5.00); Lymphocytes % (A) 33.6 %; MCH 29.1 pg (27.0-32.0); MCHC 31.3 g/dL (32.0-37.0); MCV 92.9 fL (80.0-97.0); Mean Platelet Volume 10.7 fL (9.5-12.2); Monocytes # (A) 0.38 X 10*3/uL (0.20-1.00); Monocytes % (A) 5.9 %; NRBC Per 100 WBC 0 /100 WBCS (0.0-0.0); Neutrophils # (A) 3.72 X 10*3/uL (1.80-7.70); Neutrophils % (A) 57.3 %; Platelet Count 335 X 10*3/uL (140-440); RBC 4.09 X 10*6/uL (4.10-5.20); RDW 13.7 % (11.5-14.5); WBC 6.49 X 10*3/uL (4.50-10.00)
[2021-11-11 22:24] LABS: ALT 14 U/L (8-44); AST 14 U/L (13-35); African American GFR (CKD) 113.2 (60.0-200.0); Albumin 4.1 g/dL (3.8-4.9); Albumin/Globulin Ratio 1.81 (1.60-3.17); Alkaline Phosphatase 66 U/L (41-126); BUN/Creat Ratio 14.76 Ratio (12.00-20.00); Blood Urea Nitrogen 10.3 mg/dL (9.0-27.0); Calcium 8.8 mg/dL (8.7-10.3); Carbon Dioxide 23.5 mmol/L (20.0-27.5); Chloride 104 mmol/L (96-109); Chol/HDL Ratio 3.07 Ratio; Creatine Kinase 54 U/L (26-186); Globulin 2.3 g/dL (1.6-3.3); Glucose 90 mg/dL (70-110); LDL Cholesterol,Calculated 65.1 mg/dL (0.0-131.0); Magnesium 2.2 mg/dL (1.5-2.4); Non-African American GFR(CKD) 97.6 (60.0-200.0); Potassium 4.2 mmol/L (3.5-5.5); Sodium 139 mmol/L (135-145); Total Protein 6.4 g/dL (6.2-8.2)
== END | disposition home or self-care (01) ==
LOC: LABWHC1 10:51
PROVIDERS: ATTEND Family Medicine
DX: E11.9 Type 2 diabetes mellitus without complications (principal); I10 Essential (primary) hypertension; M54.12 Radiculopathy, cervical region; R53.82 Chronic fatigue, unspecified
CPT/HCPCS: 36415; 80053; 80061; 82550; 83036; 83735; 84443; 85025; 86663; 86664; 86665; 86694; 86695; 86696

== ENCOUNTER → 2022-01-12 | Outpatient (CLI) | payer OTHER ==
--- NOTE | 2022-01-13 07:55 | MM ---
Reason for Exam: Screening (asymptomatic). Last mammogram was performed 4 year(s) and 6 month(s) ago. Patient History: Menarche at age 13. First Full-Term at age 19. Hysterectomy at age 33. Risk Values: Jessica 5 year model risk: 0.8%. NCI Lifetime model risk: 6.0%. Prior Study Comparison: 08/13/2014 Screening Mammogram, [facility]. 01/06/2016 Screening Mammogram, [facility]. 06/28/2017 Bilateral Screening Mammogram, [facility]. Tissue Density: The breast tissue is heterogeneously dense. This may lower the sensitivity of mammography. Findings: Analyzed By CAD. There is no suspicious group of microcalcifications or new suspicious mass in either breast. Overall Assessment: Negative, BI-RAD 1 Management: Screening Mammogram of both breasts in 1 year. A clinical breast exam by your physician is recommended on an annual basis and results should be correlated with mammographic findings. Electronically signed and approved by: Umair Duval M.D. Radiologis
== END | disposition home or self-care (01) ==
LOC: RADMAMWWP 08:49
PROVIDERS: ATTEND Family Medicine
DX: Z12.31 Encounter for screening mammogram for malignant neoplasm of breast (principal)
CPT/HCPCS: 77067

== ENCOUNTER → 2022-03-01 | Outpatient (CLI) | payer OTHER ==
--- NOTE | 2022-03-01 17:37 | BD ---
EXAMINATION TYPE: Axial Bone Density DATE OF EXAM: 03/01/2022 COMPARISON: PRIOR 02.25.2020 UNAVAILABLE...TRENDED WITH...06.28.2017 CLINICAL HISTORY: 56 years year old Female. ICD-10 CODE: M89.9 DISORDER OF BONE, Z79.52 CHR STEROID USE Height: 62.3 Weight: 150 FRAX RISK QUESTIONS: Glucocorticoids (More than 3mos): YES (Ex: prednisone, prednisolone, methylprednisolone, dexamethasone, and hydrocortisone). History of Fracture in Adulthood: YES Current Tobacco Use: QUIT 3 YRS AGO RISK FACTORS HISTORY OF: FOOT FX AT 42, RT FOOT REBROKEN AT 55 YRS OLD History of Wrist Fracture: RT WRIST A CHILD Family History of Osteoporosis: YES, NO FX Diet low in dairy products/other sources of calcium: YES, IBS Postmenopausal woman: LMP AT 33, HORMONAL FREDO. AT 51 Hyperparathyroidism: NO Adrenal Insufficiency: NO MEDICATIONS: Prednisone or other steroids: YES, ASTHMA, FIBROMIALGIA, URTICARIAL VASCULITIS, JUDITH 20 YRS Thyroid Medications: YES SYNTHROID PRODUCT OVER 10 YRS Osteoporosis Medications: YES, FOSAMAX FOR 2 YRS Additional Medications: BP MEDS, CYMBALTA, REFLUX MEDS, STATIN FOR CHOLESTEROL, VIT D AND CALCIUM , F OSAMAX, Additional History: ASTHMA, FIBROMYALGIA, UTICARIAL VASCULITIS, DIABETIC, REFLUX, HYPERTENSION, CORNELIA STEROL, THYROID, DEPRESSION, ARTHRITIS EXAM MEASUREMENTS: Bone mineral densitometry was performed using the [employer] System. Bone mineral density as measured about the Lumbar spine is: ----- L1-L4(G/cm2): 1.105 T Score Values are as follows: ----- L1: -1.6 ----- L2: -0.4 ----- L3: -0.3 ----- L4: -0.5 ----- L1-L4: -0.6 Bone mineral density has: Increased 9.5% since study of: 06.28.2017 Bone mineral density about the R hip (g/cm2): 0.840 Bone mineral density about the L hip (g/cm2): 0.889 T Score values are as follows: -----R Neck: -1.4 -----L Neck: -1.9 -----R Total: -1.3 -----L Total: -0.9 Bone mineral density has: Increased 3.2% since study of: 06.28.2017 FRAX%s: The graph provided illustrates a 21.9% chance for a major osteoporotic fx and a 3.2% chance f or the hips probability for fx in 10 years time. IMPRESSION: Osteopenia (T Score between -2.5 and -1). There is slightly increased risk of fracture and the patient may be considered for treatment. Re-Screen 2-5 years. NOTE: T-SCORE=SD OF THE YOUNG ADULT MEAN.
== END | disposition home or self-care (01) ==
LOC: RADBDWWP 08:57
PROVIDERS: ATTEND Family Medicine
DX: M85.89 Other specified disorders of bone density and structure, multiple sites (principal); Z79.52 Long term (current) use of systemic steroids
CPT/HCPCS: 77080

== ENCOUNTER → 2023-04-04 | Outpatient (CLI) | payer OTHER ==
--- NOTE | 2023-04-05 09:02 | CTL ---
EXAMINATION TYPE: CT Low Dose Lung DATE OF EXAM: 04/04/2023 1:07 PM CLINICAL INDICATION:Female, 57 years old with history of [id number]; personal hx of tobacco use. 2 packs/ day x 30 years. quit 4 years ago. , history of tobacco use. COMPARISON: None. TECHNIQUE: Multiple axial non-contrast scans were obtained from approximately the lung apices through the upper abdomen. Coronal and sagittal reformatted images were obtained. Low dose technique was uti lized. CT DLP: 88.3 mGycm, Automated exposure control for dose reduction was used. CT Contrast: Contrast used: None Oral contrast used: None FINDINGS: ======== Lack of intravenous contrast and low dose technique limits the evaluation of the vascular and soft ti ssue structures. LUNGS: No evidence of pulmonary fibrosis. No evidence of focal consolidation, pneumothorax or pleural effusion. Centrilobular emphysema changes are present. Nodules: RUL: None. RML: None. RLL: None. CHERY: None. LLL: None. AIRWAY: Patent and unremarkable. HEART: Size within normal limits. MEDIASTINUM: No gross evidence of adenopathy. VASCULATURE: Atherosclerotic calcifications are present throughout the aorta and its branches. MUSCULOSKELETAL: No acute osseous abnormalities SOFT TISSUES/LYMPH NODES: Unremarkable. LOWER NECK: No significant findings. UPPER ABDOMEN: No significant findings. IMPRESSION: No pulmonary nodules. CT LUNG RAD AND CT CHEST RECOMMENDATION: Lung-Rad 1 Negative: Continue annual screening with LDCT in 12 months. S Modifier (other clinically significant findings): None Recommend smoking cessation (if current smoker), or continuation of smoking cessation (if prior smoke r). Annual screening for lung cancer with low-dose computed tomography is recommended in adults ages 55 to 77 years who have a 30 pack-year smoking history and currently smoke or have quit within the pa st 15 years. Screening should be discontinued once a person has not smoked for 15 years or develops a health problem that substantially limits life expectancy or the ability or willingness to have curat amanda lung surgery. Lung rads 2021 [email or web address]
== END | disposition home or self-care (01) ==
LOC: RADCTMAIN 12:19
PROVIDERS: ATTEND Family Medicine
DX: Z12.2 Encounter for screening for malignant neoplasm of respiratory organs (principal); Z87.891 Personal history of nicotine dependence
CPT/HCPCS: 71271

== ENCOUNTER → 2024-04-28 | Outpatient (CLI) | payer MEDICARE, OTHER ==
--- NOTE | 2024-04-28 12:53 | BD ---
EXAMINATION TYPE: Axial Bone Density DATE OF EXAM: 04/28/2024 CLINICAL HISTORY: 59 years old Female. ICD-10 CODE: M81.0 OSTEOPOROSIS Height: 62in Weight: 178lb FRAX RISK QUESTIONS: History of Fracture in Adulthood: yes Secondary Osteoporosis: Rheumatoid Arthritis: yes RISK FACTORS HISTORY OF: Surgery to Spine/Hip(right/left)/Wrist (right/left): left wrist surgery as a teenager MEDICATIONS: Thyroid Medications: Which medication: Levothyroxine How Long: about 4 years Osteoporosis Medications: Which medication: Fosamax How Long: about 4 years EXAM MEASUREMENTS: Bone mineral densitometry was performed using the eventblimp System. Bone mineral density as measured about the Lumbar spine is: ----- L1-L4(G/cm2): 1.145 T Score Values are as follows: ----- L1: -0.8 ----- L2: -0.4 ----- L3: -0.1 ----- L4: -0.3 ----- L1-L4: -0.3 Z Score Values are as follows: ----- L1: -0.3 ----- L2: 0.1 ----- L3: 0.5 ----- L4: 0.2 ----- L1-L4: 0.2 Bone mineral density has: Increased 3.6% since study of: 03-01-22 Bone mineral density about the R hip (g/cm2): 0.917 Bone mineral density about the L hip (g/cm2): 0.951 T Score values are as follows: -----R Neck: -1.6 -----L Neck: -1.7 -----R Total: -0.7 -----L Total: -0.5 Z Score values are as follows: -----R Neck: -0.8 -----L Neck: -0.9 -----R Total: -0.3 -----L Total: 0.0 Bone mineral density has: Increased 8.0% since study of: 03-01-22 FRAX%s: The graph provided illustrates a 13.3% chance for a major osteoporotic fx and a 1.4% chance f or the hips probability for fx in 10 years time. IMPRESSION: Normal (Values between +1 and -1 indicate normal bone mass). Consider repeating this study in 5 year s or sooner if there is some new clinical indication. NOTE: T-SCORE=SD OF THE YOUNG ADULT MEAN. [facility], , 04/28/2024 12:51 PM
--- NOTE | 2024-04-29 19:53 | MM ---
Reason for Exam: Screening (asymptomatic). Last mammogram was performed 1 year(s) and 1 month(s) ago. Patient History: Menarche at age 13. First Full-Term at age 19. Hysterectomy at age 33. Risk Values: Jessica 5 year model risk: 1.0%. NCI Lifetime model risk: 5.6%. Prior Study Comparison: 06/28/2017 Bilateral Screening Mammogram, [facility]. 01/12/2022 Bilateral MG screening mammo w CAD, [facility]. 04/04/2023 Bilateral MG screening mammo w CAD, [facility]. Tissue Density: There are scattered areas of fibroglandular density. Findings: Analyzed By CAD. Unchanged asymmetric densities and chronic nodularity on the left. There is no suspicious group of microcalcifications or new suspicious mass in either breast. Overall Assessment: Benign, BI-RAD 2 Management: Screening Mammogram of both breasts in 1 year. . Patient should continue monthly self-breast exams. A clinical breast exam by your physician is recommended on an annual basis. This exam should not preclude additional follow-up of suspicious palpable abnormalities. Note on Jessica scores and lifetime risk: 1. A Jessica score greater than 3% is considered moderate risk. If this is the case, consider specialist referral to assess eligibility for a risk reducing agent. 2. If overall lifetime risk for the development of breast cancer is 20% or higher, the patient may qualify for future screening with alternating mammogram and breast MRI. [facility], , 04/29/2024 7:51 PM. Electronically signed and approved by: Barbra Souza M.D. Radiologist
== END | disposition home or self-care (01) ==
LOC: RADMAMWWP 11:47
PROVIDERS: ATTEND Family Medicine
DX: Z12.31 Encounter for screening mammogram for malignant neoplasm of breast (principal); M81.0 Age-related osteoporosis without current pathological fracture; R92.323 Mammographic fibroglandular density, bilateral breasts; M85.89 Other specified disorders of bone density and structure, multiple sites
CPT/HCPCS: 77063; 77067; 77080

== ENCOUNTER → 2024-05-12 | Outpatient (CLI) | payer MEDICARE, OTHER ==
--- NOTE | 2024-05-12 14:33 | CTL ---
EXAMINATION TYPE: CT Low Dose Lung DATE OF EXAM ORDERED: 05/12/2024 History: Lung cancer screening CT DLP: 86.[address] CTDI: 2.6 mGy Automated exposure control for dose reduction was used. Comparison: 04/04/2023 TECHNIQUE: Low dose computed tomography scan was performed through the chest at 1 mm thick sections a nd reconstructed images in multiple planes at 1 mm and [address] DIAGNOSTIC QUALITY: Satisfactory FINDINGS: There is no suspicious lung mass or nodule The lungs are clear and there is no abnormal airspace consolidation or interstitial density. There is no mediastinal, hilar or axillary adenopathy. There is no pleural effusion, pleural thickening or pneumothorax. No focal osseous lesions are seen. Limited scans the upper abdomen reveals no gross abnormality IMPRESSION: 1. Lung rads Category 1 negative. Continue routine screening at yearly intervals. 2. No acute cardiopulmonary disease. [facility], , 05/12/2024 2:30 PM
== END | disposition home or self-care (01) ==
LOC: RADCTMAIN 13:58
PROVIDERS: ATTEND Family Medicine
CPT/HCPCS: 71271

== ENCOUNTER 2024-08-12 09:19 | Day surgery (SDC) | payer MEDICARE, OTHER ==
[2024-08-08 14:02] VITALS: BMI 31.8
[~2024-08-12 09:19] MED LIST changes: -LACTATED RINGERS 1,000 ML IV SCH; +LIDOCAINE 1% (10MG/ML) FOR IV START INTRADERMA PRN; -LIDOCAINE 1% 20 ML VIAL (10MG/ML) FOR IV START INTRADERMA PRN
[2024-08-12 10:37] VITALS: TEMP 98.5
[2024-08-12 10:46] LABS: Glucose,Whole Blood 102 mg/dL (70-110)
[2024-08-12] MEDS: LACTATED RINGERS 1,000 ML IV SCH (10:46)
[2024-08-12] MEDS: IV FLUID CONTINUATION 1,000 ML IV ONE (10:47)
[2024-08-12] MEDS ORDERED: PROPOFOL 10 MG/ML 20 ML VIAL IV ONE (11:15)
--- NOTE | 2024-08-12 11:30 | P.PCN ---
Date of Procedure: 08/12/24 Procedure(s) Performed: BRIEF HISTORY: Patient is a 59-year-old pleasant white female scheduled for an elective colonoscopy as a part of screening for colon cancer for history of colon polyps. Last colonoscopy was 5 years ago and was noted to have multiple small colon polyps biopsies revealed adenoma. PROCEDURE PERFORMED: Colonoscopy with cold snare polypectomy. PREOPERATIVE DIAGNOSIS: Screening for colon cancer for history of colon polyps. IV sedation per Anesthesia. PROCEDURE: After informed consent was obtained, the patient, was brought into the endoscopy unit. IV sedation was administered by Anesthesia under continuous monitoring. Digital rectal examination was normal. Initially the Olympus CF-160 flexible video colonoscope was then inserted in the rectum, gradually advanced into the cecum without any difficulty. Careful examination was performed as the scope was gradually being withdrawn. Ileocecal valve and the appendiceal orifice were visualized and appeared normal. Prep was excellent. Mucosa of the cecum, ascending colon, normal. The hepatic lecture there was a 8 mm flat polyp removed by cold snare polypectomy. Rest of the transverse colon, descending colon, sigmoid colon, and rectum appeared normal. Retroflexion was performed in the rectum and no lesions were seen. The patient tolerated the procedure well. IMPRESSION: 8 mm flat hepatic rectal polyp status post cold snare polypectomy Rest of the colon appeared normal RECOMMENDATIONS: Findings of this examination were discussed with the patient as well as her family. She was advised to follow-up with the biopsy results. If the biopsy reveals adenoma she can have repeat colonoscopy in 5 years..
[2024-08-12 11:59] VITALS: BP 131/77; PULSE 71; RESP 18
== END 2024-08-12 12:14 | disposition home or self-care (01) ==
LOC: ORWHC2ENDO 09:19
PROVIDERS: ATTEND Internal Medicine Gastroenterology
DX: Z12.11 Encounter for screening for malignant neoplasm of colon (principal); D12.3 Benign neoplasm of transverse colon; E78.5 Hyperlipidemia, unspecified; I10 Essential (primary) hypertension; E11.9 Type 2 diabetes mellitus without complications; E07.9 Disorder of thyroid, unspecified; K21.9 Gastro-esophageal reflux disease without esophagitis; Z79.890 Hormone replacement therapy; Z79.899 Other long term (current) drug therapy; Z90.710 Acquired absence of both cervix and uterus; Z98.890 Other specified postprocedural states; Z98.42 Cataract extraction status, left eye; Z98.41 Cataract extraction status, right eye; Z86.0101 Personal history of adenomatous and serrated colon polyps
CPT/HCPCS: 45385; J2704; 88305